=== PATIENT | male | born 1940 | race Caucasian/White ===

== ENCOUNTER 2018-01-14 21:02 | Inpatient (IN) | payer MEDICARE, BC ==
[2018-01-14] MEDS ORDERED: LORazepam 2 MG/ML SDV IVPUSH ONE (23:30)
[2018-01-14] MEDS ORDERED: HYDROmorphone 1 MG/ML Syringe IVPUSH ONE (23:30)
[2018-01-14] MEDS ORDERED: Ondansetron 4 MG/2 ML SDV IVPUSH ONE (23:30)
[2018-01-14] MEDS ORDERED: Sodium Chloride 0.9% 1,000 ML IV SCH (23:45)
--- NOTE | 2018-01-15 00:10 | EDM.PDOC ---
ED HPI GENERAL MEDICAL PROBLEM - General Chief Complaint: Lower Extremity Injury/Pain Stated Complaint: LEFT ANKLE SWOLLEN, PAINFUL Time Seen by Provider: 01/14/18 21:48 Source of Information: Reports: Patient, RN History Limitations: Reports: No Limitations - History of Present Illness INITIAL COMMENTS - FREE TEXT/NARRATIVE: left ankle pain; this is a 77 year old male presents to ER for left ankle pain. reports at 7pm this evening was out on his deck, sitting in a chair went to get up, the deck was wet and he slipped and twisted the ankle. He had immediate pain and swelling. unable to put any wt on the foot. denies any other injury, did not have any LOC. He called his neighbor to bring him to the hospital. Onset: Sudden Onset Date: 01/14/18 Onset Time: 19:00 Duration: Hour(s):, Constant Location: Reports: Lower Extremity, Left (ankle) Quality: Reports: Ache, Sharp Severity: Moderate Improves with: Reports: Cold Therapy Worsens with: Reports: Movement Context: Reports: Trauma (fall at home on his deck) Left Ankle Pain Score (Numeric/FACES): 5 - Related Data Allergies Allergy/AdvReac Type Severity Reaction Status Date / Time Sulfa (Sulfonamide Allergy Swelling Verified 04/11/16 06:43 Antibiotics) Home Meds: Home Meds Lutein Extract/Zeaxanthin Ext [Lutein 15 MG Softgel] 1 each PO DAILY 05/31/13 [ History] Multivitamin [Multi Vitamin Daily] 1 each PO DAILY 05/31/13 [History] Rivaroxaban [Xarelto] 20 mg PO DAILY 01/14/18 [History] atorvaSTATin [Lipitor] 20 mg PO BEDTIME 01/14/18 [History] Past Medical History HEENT History: Reports: Allergic Rhinitis, Cataract, Impaired Vision Cardiovascular History: Reports: Afib, High Cholesterol Gastrointestinal History: Reports: Colon Polyp Musculoskeletal History: Reports: Fracture Hematologic History: Reports: Anticoagulation Therapy - Infectious Disease History Infectious Disease History: Reports: Chicken Pox, Measles, Mumps, Shingles - Past Surgical History HEENT Surgical History: Reports: Cataract Surgery GI Surgical History: Reports: Appendectomy, Colonoscopy, Hernia, Abdominal, Hernia, Inguinal Dermatological Surgical History: Reports: Skin Biopsy Social & Family History - Tobacco Use Smoking Status *Q: Never Smoker - Caffeine Use Caffeine Use: Reports: Coffee - Alcohol Use Days Per Week of Alcohol Use: 5 Number of Drinks Per Day: 3 Total Drinks Per Week: 15 - Recreational Drug Use Recreational Drug Use: No - Living Situation & Occupation Living situation: Reports: (x30 year. 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 he is very active) Review of Systems - Review of Systems Review Of Systems: See Below Constitutional: Reports: Other (left ankle pain) Eyes: Reports: No Symptoms, Glasses Ears: Reports: Other (ears feel plugged) Nose: Reports: No Symptoms Mouth/Throat: Reports: No Symptoms, Other (dentures) Respiratory: Reports: No Symptoms Cardiovascular: Reports: No Symptoms GI/Abdominal: Reports: No Symptoms, Other (hx of hernia repair; umbilical and bilateral inguinal) Genitourinary: Reports: No Symptoms Musculoskeletal: Reports: Leg Pain (left), Foot Pain (left), Joint Pain (left ankle), Joint Swelling (left ankle) Skin: Reports: Dryness (Left ankle), Bruising (Left ankle), Change in Color Neurological: Reports: No Symptoms Psychiatric: Reports: No Symptoms ED EXAM, GENERAL - Physical Exam Exam: See Below Exam Limited By: No Limitations General Appearance: Alert, WD/WN, Mild Distress, Other (Need to well-groomed, pleasant in general good health) Eye Exam: Bilateral Eye: Normal Inspection, PERRL, Other (Wears corrective glasses) Ears: Normal External Exam, Other (Canals impacted with soft yellow earwax, unable to visualize tympanic membrane) Ear Exam: Bilateral Ear: Other (Excessive earwax) Nose: Normal Inspection, Normal Mucosa, No Blood Throat/Mouth: Normal Inspection, Normal Lips, Normal Teeth, Normal Gums, Normal Oropharynx, Normal Voice, No Airway Compromise, Other (Dentures noted) Head: Atraumatic, Normocephalic Neck: Normal Inspection, Supple, Non-Tender, Full Range of Motion Respiratory/Chest: No Respiratory Distress, Lungs Clear, Normal Breath Sounds, No Accessory Muscle Use, Chest Non-Tender Cardiovascular: Normal Peripheral Pulses, Regular Rate, Rhythm, No Murmur Peripheral Pulses: 2+: Radial (L), Radial (R), Dorsalis Pedis (L), Dorsalis Pedis (R) GI/Abdominal: Normal Bowel Sounds, Soft, Non-Tender, No Organomegaly, No Distention, No Abnormal Bruit, No Mass (Male) Exam: Deferred Rectal (Males) Exam: Deferred Back Exam: Normal Inspection, Full Range of Motion, NT Extremities: Joint Swelling (Left ankle), Leg Pain (Left ankle with edema, bruising, and pain with any movement.), Limited Range of Motion (Left ankle left ankle) Neurological: Alert (She now), Oriented, CN II-XII Intact, Normal Cognition, Normal Gait, Normal Reflexes, No Motor/Sensory Deficits Psychiatric: Normal Affect Skin Exam: Warm, Dry, Intact, No Rash, Other (Bruising noted to the left ankle and toes) Lymphatic: No Adenopathy ED TRAUMA EXTREMITY PROCEDURES - Splinting Left Lower Extremity Pre-Procedure NV Status: Normal Post-Procedure NV Status: Normal Splint Material: Aluminum-Foam Splint Design: Stirrup Applied & Form Fitted By: Provider (Dr. Bruno) Provider Post-Splint Application NV Check: NV Status Normal, Good Position Complications: No Course - Vital Signs Last Recorded V/S: Last Vital Signs Temp 37.3 C 01/15/18 00:45 Pulse 65 01/15/18 00:45 Resp 15 01/15/18 00:45 BP 109/73 01/15/18 00:45 Pulse Ox 95 01/15/18 00:45 - Orders/Labs/Meds Orders: Active Orders 24 hr Category Date Time Status Ankle Min 3V Lt [CR] Stat Exams 01/14/18 22:33 Taken Sodium Chloride 0.9% [Normal Saline] 1,000 ml Med 01/14/18 23:45 Active IV ASDIRECTED Medication Orders Albuterol (Proventil Neb Soln) 2.5 mg NEB Q4H PRN PRN Reason: Shortness Of Breath/wheezing Docusate Sodium (Colace) 100 mg PO BID PRN PRN Reason: Constipation Hydromorphone HCl (Dilaudid) 1 mg IVPUSH Q3H PRN PRN Reason: Pain Sodium Chloride (Normal Saline) 1,000 mls @ 999 mls/hr IV ASDIRECTED [facility] Last Admin: 01/14/18 23:46 Dose: 999 mls/hr Cefazolin Sodium/Dextrose 2 gm (/ Premix) 50 mls @ 100 mls/hr IV DAILY PRN PRN Reason: Other Stop: 01/16/18 11:31 Sodium Chloride (Normal Saline) 1,000 mls @ 125 mls/hr IV ASDIRECTED [facility] Lorazepam (Ativan) 1 mg IV Q6H PRN PRN Reason: Nausea/Vomiting Morphine Sulfate (Morphine) 2 mg IVPUSH Q2H PRN PRN Reason: Pain (severe 7-10) Ondansetron HCl (Zofran) 4 mg IV Q4H PRN PRN Reason: Nausea/Vomiting Pantoprazole Sodium (Protonix Iv) 40 mg IVPUSH ACBREAKFAST [facility] Zolpidem Tartrate (Ambien) 5 mg PO BEDTIME [facility] Meds: Medications Generic Name Dose Route Start Last Admin Trade Name Freq PRN Reason Stop Dose Admin Albuterol 2.5 mg 01/15/18 00:45 Proventil Neb Soln NEB Q4H PRN Shortness Of Breath/wheezing Docusate Sodium 100 mg 01/15/18 00:45 Colace PO BID PRN Constipation Hydromorphone HCl 1 mg 01/15/18 00:45 Dilaudid IVPUSH Q3H PRN Pain Sodium Chloride 1,000 mls @ 999 mls/hr 01/14/18 23:45 01/14/18 23:46 Normal Saline IV 999 mls/hr ASDIRECTED [facility] Administration Cefazolin Sodium/Dextrose 2 gm 50 mls @ 100 mls/hr 01/15/18 11:30 / Premix IV 01/16/18 11:31 DAILY PRN Other Sodium Chloride 1,000 mls @ 125 mls/hr 01/15/18 00:45 Normal Saline IV ASDIRECTED [facility] Lorazepam 1 mg 01/15/18 00:45 Ativan IV Q6H PRN Nausea/Vomiting Morphine Sulfate 2 mg 01/15/18 00:45 Morphine IVPUSH Q2H PRN Pain (severe 7-10) Ondansetron HCl 4 mg 01/15/18 00:45 Zofran IV Q4H PRN Nausea/Vomiting Pantoprazole Sodium 40 mg 01/15/18 07:30 Protonix Iv IVPUSH ACBREAKFAST [facility] Zolpidem Tartrate 5 mg 01/15/18 00:45 Ambien PO BEDTIME [facility] Discontinued Medications Generic Name Dose Route Start Last Admin Trade Name Freq PRN Reason Stop Dose Admin Hydromorphone HCl 1 mg 01/14/18 23:30 01/14/18 23:52 Dilaudid IVPUSH 01/14/18 23:31 1 mg ONETIME ONE Administration Lorazepam 0.5 mg 01/14/18 23:30 01/14/18 23:52 Ativan IVPUSH 01/14/18 23:31 0.5 mg ONETIME ONE Administration Ondansetron HCl 4 mg 01/14/18 23:30 01/14/18 23:53 Zofran IVPUSH 01/14/18 23:31 4 mg ONETIME ONE Administration - Radiology Interpretation Free Text/Narrative:: X-ray shows a left ankle fracture, spiral oblique fracture of the distal fibula and abnormal ankle mortise Consulted with Dr. Hector Faustin orthopedic surgeon Recommends admission to hospital service -surgery at noon tomorrow, January 15, 2018 -Give Ancef 2 g prior to surgery -Nothing by mouth after midnight -reduce fracture, Placed in a posterior splint and reduced by ER provider -For reduction of fracture, patient was given 1 mg Dilaudid and 0.5 mg IV, pain control is obtained, IV fluids normal saline at 999 mL per hour. Discuss all the above plan of care with patient, he agrees with plan of care, he will notify his family in the morning Departure - Departure Time of Disposition: 00:15 Disposition: Admitted As Inpatient 65 Condition: Good Clinical Impression: Fracture of ankle, Fracture of fibula - Discharge Information *PRESCRIPTION DRUG MONITORING PROGRAM REVIEWED*: No *COPY OF PRESCRIPTION DRUG MONITORING REPORT IN PATIENT JESU: No - Problem List & Annotations (1) Fracture of ankle SNOMED Code(s): 13794595 Code(s): S82.899A - OTH FRACTURE OF UNSP LOWER LEG, INIT FOR CLOS FX Status : Acute Priority: High Current Visit: Yes (2) Fracture of fibula SNOMED Code(s): 58762642 Code(s): S82.409A - UNSP FRACTURE OF SHAFT OF UNSP FIBULA, INIT FOR CLOS FX Status: Acute Priority: High Current Visit: Yes (3) Afib, Atrial fibrillation SNOMED Code(s): 67162882 Code(s): I48.91 - UNSPECIFIED ATRIAL FIBRILLATION Status: Acute Priority : Low Current Visit: No - Problem List Review Problem List Initiated/Reviewed/Updated: Yes - My Orders Last 24 Hours: My Active Orders 01/14/18 22:33 Ankle Min 3V Lt [CR] Stat 01/14/18 23:45 Sodium Chloride 0.9% [Normal Saline] 1,000 ml IV ASDIRECTED - Assessment/Plan Last 24 Hours: My Active Orders 01/14/18 22:33 Ankle Min 3V Lt [CR] Stat 01/14/18 23:45 Sodium Chloride 0.9% [Normal Saline] 1,000 ml IV ASDIRECTED
[2018-01-15] MEDS ORDERED: Ondansetron 4 MG/2 ML SDV IV PRN (00:45)
[2018-01-15] MEDS ORDERED: Albuterol 0.083% 2.5 MG/3 ML Neb Soln NEB PRN (00:45)
[2018-01-15] MEDS ORDERED: Docusate Sodium 100 MG Cap PO PRN (00:45)
[2018-01-15] MEDS ORDERED: Morphine 2 MG/ML Syringe IVPUSH PRN (00:45)
[2018-01-15] MEDS ORDERED: LORazepam 2 MG/ML SDV IV PRN ×2 (00:45→13:51)
--- NOTE | 2018-01-15 01:29 | PCM.HP ---
H&P History of Present Illness - General Date of Service: 01/14/18 Admit Problem/Dx: Admission Diagnosis/Problem Admission Diagnosis/Problem Ankle fracture Source of Information: Patient History Limitations: Reports: No Limitations - History of Present Illness Initial Comments - Free Text/Narative: left ankle pain; this is a 77 year old male presents to ER for left ankle pain. reports at 7pm this evening was out on his deck, sitting in a chair went to get up, the deck was wet and he slipped and twisted the ankle. He had immediate pain and swelling. unable to put any wt on the foot. denies any other injury, did not have any LOC. He called his neighbor to bring him to the hospital. X-rays of left ankle show a spiral oblique fracture of the distal fibula was abnormal mortise of ankle. Consult to Dr. Peter Faustin who advised admission for surgery tomorrow at noon, also advised reduction of the ankle. This was done by ER provider without complication. Placed in the posterior's steel and foam splint. While in emergency room given IV fluids, Dilaudid, Ativan, and Zofran. Onset of Symptoms: Reports: Sudden Symptom Onset Date: 01/14/18 Symptom Onset Time: 19:00 Duration of Symptoms: Reports: Hour(s): Location: Reports: Lower Extremity, Left (Ankle) Quality: Reports: Ache, Sharp, Stabbing Severity: Moderate Improves with: Reports: Immobilization Worsens with: Reports: Movement Context: Reports: Other (Fall on [place] Associated Symptoms: Reports: No Other Symptoms Left Ankle Pain Score (Numeric/FACES): 5 - Related Data Allergies/Adverse Reactions: Allergies Allergy/AdvReac Type Severity Reaction Status Date / Time Sulfa (Sulfonamide Allergy Swelling Verified 04/11/16 06:43 Antibiotics) Home Medications: Home Meds Lutein Extract/Zeaxanthin Ext [Lutein 15 MG Softgel] 1 each PO DAILY 05/31/13 [ History] Multivitamin [Multi Vitamin Daily] 1 each PO DAILY 05/31/13 [History] Rivaroxaban [Xarelto] 20 mg PO DAILY 01/14/18 [History] atorvaSTATin [Lipitor] 20 mg PO BEDTIME 01/14/18 [History] Past Medical History HEENT History: Reports: Allergic Rhinitis, Cataract, Impaired Vision Cardiovascular History: Reports: Afib, High Cholesterol Gastrointestinal History: Reports: Colon Polyp Musculoskeletal History: Reports: Fracture Hematologic History: Reports: Anticoagulation Therapy - Infectious Disease History Infectious Disease History: Reports: Chicken Pox, Measles, Mumps, Shingles - Past Surgical History HEENT Surgical History: Reports: Cataract Surgery GI Surgical History: Reports: Appendectomy, Colonoscopy, Hernia, Abdominal, Hernia, Inguinal Dermatological Surgical History: Reports: Skin Biopsy Social & Family History - Tobacco Use Smoking Status *Q: Never Smoker Second Hand Smoke Exposure: No - Caffeine Use Caffeine Use: Reports: Coffee - Alcohol Use Days Per Week of Alcohol Use: 5 Number of Drinks Per Day: 3 Total Drinks Per Week: 15 Date of Last Drink: 01/14/18 Time of Last Drink: 17:00 - Recreational Drug Use Recreational Drug Use: No - Living Situation & Occupation Living situation: Reports: (x30 year. 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 he is very active) H&P Review of Systems - Review of Systems: Review Of Systems: See Below General: Reports: Other (Left lower leg pain) HEENT: Reports: No Symptoms, Glasses, Other (Dentures) Pulmonary: Reports: No Symptoms Cardiovascular: Reports: No Symptoms, Other (History of atrial fib., treated with Xarelto 20mg daily) Gastrointestinal: Reports: No Symptoms Genitourinary: Reports: No Symptoms Musculoskeletal: Reports: Leg Pain, Foot Pain (Left left), Joint Pain (Left ankle), Joint Swelling (Left ankle and foot) Skin: Reports: Bruising (Left ankle and foot including toes) Psychiatric: Reports: No Symptoms Neurological: Reports: No Symptoms Hematologic/Lymphatic: Reports: No Symptoms Immunologic: Reports: No Symptoms Exam - Exam Exam: See Below - Vital Signs Vital Signs: Last Vital Signs Temp 37.3 C 01/15/18 00:45 Pulse 65 01/15/18 00:45 Resp 15 01/15/18 00:45 BP 109/73 01/15/18 00:45 Pulse Ox 95 01/15/18 00:45 Weight: 95.073 kg - Exam Quality Assessment: Supplemental Oxygen (2 L per nasal cannula) General: Alert, Oriented, Cooperative, Other (Calm and pain control with IV Ativan and Dilaudid) HEENT: PERRLA, Conjunctiva Clear, EACs Clear, EOMI, Hearing Intact, Mucosa Moist & Niotaze, Nares Patent, Normal Nasal Septum, Pupils Equal, Pupils Reactive, Glasses, Other (Dentures, excessive ear wax is noted.) Neck: Supple, Trachea Midline, 2 Lungs: Clear to Auscultation, Normal Respiratory Effort Cardiovascular: Regular Rate, Regular Rhythm GI/Abdominal Exam: Normal Bowel Sounds, Soft, Non-Tender, No Organomegaly, No Distention, No Abnormal Bruit, No Mass, Pelvis Stable (Male) Exam: Deferred Rectal (Males) Exam: Deferred Back Exam: Normal Inspection, Full Range of Motion Extremities: Leg Pain (Left ankle edema, bruising, pain, and due to ankle fracture.), Limited Range of Motion Peripheral Pulses: 2+: Brachial (L), Brachial (R), Dorsalis Pedis (L), Dorsalis Pedis (R) Skin: Warm, Dry, Ecchymosis (Left ankle and foot including toes) Neurological: Normal Speech, Normal Tone, Sensation Intact Neuro Extensive - Mental Status: Alert, Oriented x3, Normal Mood/Affect, Normal Cognition, Memory Intact Neuro Extensive - Motor, Sensory, Reflexes: CN II-XII Intact Psychiatric: Alert, Normal Affect, Normal Mood - Problem List (1) Fracture of ankle SNOMED Code(s): 75149330 ICD Code: S82.899A - OTH FRACTURE OF UNSP LOWER LEG, INIT FOR CLOS FX Status: Acute Priority: High Current Visit: Yes (2) Fracture of fibula SNOMED Code(s): 71796947 ICD Code: S82.409A - UNSP FRACTURE OF SHAFT OF UNSP FIBULA, INIT FOR CLOS FX Status: Acute Priority: High Current Visit: Yes (3) Afib, Atrial fibrillation SNOMED Code(s): 90699916 ICD Code: I48.91 - UNSPECIFIED ATRIAL FIBRILLATION Status: Acute Priority : Low Current Visit: No Problem List Initiated/Reviewed/Updated: Yes Orders Last 24hrs: Active Orders 24 hr Category Date Time Status Patient Status [ADT] Routine ADT 01/15/18 00:45 Active Bedrest Bedside Commode [RC] ASDIRECTED Care 01/15/18 00:45 Active Intake and Output [RC] QSHIFT Care 01/15/18 00:45 Active Notify Provider Consults [RC] ASDIRECTED Care 01/15/18 00:45 Active Notify Provider Vital Signs [RC] ASDIRECTED Care 01/15/18 00:45 Active Oxygen Therapy [RC] PRN Care 01/15/18 00:45 Active Pulse Oximetry [RC] CONTINUOUS Care 01/15/18 00:45 Active RT Aerosol Therapy [RC] ASDIRECTED Care 01/15/18 00:45 Active VTE/DVT Education [RC] Per Unit Routine Care 01/15/18 00:45 Active Vital Signs [RC] Q4H Care 01/15/18 00:45 Active Consult to Physician [CONS] Routine Cons 01/15/18 00:45 Ordered OT Evaluation and Treatment [CONS] Routine Cons 01/15/18 00:45 Active Nothing per Oral After Midnight Diet [DIET] Diet 01/15/18 Breakfast Active Ankle Min 3V Lt [CR] Stat Exams 01/14/18 22:33 Taken BASIC METABOLIC PANEL,BMP [CHEM] AM Lab 01/15/18 05:11 Ordered CBC WITH AUTO DIFF [HEME] AM Lab 01/15/18 05:11 Ordered UA W/MICROSCOPIC [URIN] Routine Lab 01/15/18 00:45 Ordered Albuterol [Proventil Neb Soln] Med 01/15/18 00:45 Active 2.5 mg NEB Q4H PRN Docusate Sodium [Colace] Med 01/15/18 00:45 Active 100 mg PO BID PRN HYDROmorphone [Dilaudid] Med 01/15/18 00:45 Active 1 mg IVPUSH Q3H PRN LORazepam [Ativan] Med 01/15/18 00:45 Active 1 mg IV Q6H PRN Morphine Med 01/15/18 00:45 Active 2 mg IVPUSH Q2H PRN Ondansetron [Zofran] Med 01/15/18 00:45 Active 4 mg IV Q4H PRN Pantoprazole [ProTONIX IV] Med 01/15/18 07:30 Active 40 mg IVPUSH ACBREAKFAST Sodium Chloride 0.9% [Normal Saline] 1,000 ml Med 01/14/18 23:45 Active IV ASDIRECTED Sodium Chloride 0.9% [Normal Saline] 1,000 ml Med 01/15/18 00:45 Active IV ASDIRECTED Zolpidem [Ambien] Med 01/15/18 00:45 Active 5 mg PO BEDTIME ceFAZolin [Ancef] 2 gm Med 01/15/18 11:30 Active Premix Bag 1 bag IV DAILY Resuscitation Status Routine Resus Stat 01/14/18 23:51 Ordered Medication Orders Albuterol (Proventil Neb Soln) 2.5 mg NEB Q4H PRN PRN Reason: Shortness Of Breath/wheezing Docusate Sodium (Colace) 100 mg PO BID PRN PRN Reason: Constipation Hydromorphone HCl (Dilaudid) 1 mg IVPUSH Q3H PRN PRN Reason: Pain Sodium Chloride (Normal Saline) 1,000 mls @ 999 mls/hr IV ASDIRECTED [facility] Last Admin: 01/14/18 23:46 Dose: 999 mls/hr Cefazolin Sodium/Dextrose 2 gm (/ Premix) 50 mls @ 100 mls/hr IV DAILY PRN PRN Reason: Other Stop: 01/16/18 11:31 Sodium Chloride (Normal Saline) 1,000 mls @ 125 mls/hr IV ASDIRECTED [facility] Lorazepam (Ativan) 1 mg IV Q6H PRN PRN Reason: Nausea/Vomiting Morphine Sulfate (Morphine) 2 mg IVPUSH Q2H PRN PRN Reason: Pain (severe 7-10) Ondansetron HCl (Zofran) 4 mg IV Q4H PRN PRN Reason: Nausea/Vomiting Pantoprazole Sodium (Protonix Iv) 40 mg IVPUSH [facility]BREAK[facility]ST [facility] Zolpidem Tartrate (Ambien) 5 mg PO BEDTIME [facility] Assessment/Plan Comment:: ASSESSMENT / PLAN - left ankle pain; this is a 77 year old male presents to ER for left ankle pain. reports at 7pm this evening was out on his deck, sitting in a chair went to get up, the deck was wet and he slipped and twisted the ankle. He had immediate pain and swelling. unable to put any wt on the foot. denies any other injury, did not have any LOC. He called his neighbor to bring him to the hospital. X-rays of left ankle show a spiral oblique fracture of the distal fibula with abnormal mortise of ankle. Consult to Dr. Peter Faustin who advised admission for surgery tomorrow at noon, also advised reduction of the ankle. This was done by ER provider without complication. Placed in the posterior's steel and foam splint. While in emergency room given IV fluids, Dilaudid, Ativan, and Zofran. Left ankle fracture -Admit to 2 N. observation -Scheduled for surgery of the left ankle at noon on the 12/08/17 -Nothing by mouth after midnight -Ancef 2 g. IV prior to surgery -Pain control -Melatonin or Ambien for sleep as he did -Referral to OT for discharge planning -Oxygen per nasal cannula to keep sats greater than 90% -IV fluids for rehydration NS at 125 mL per hour -Advise to notify nurses of any chest pain or other symptoms -And a.m. labs: CBC, BMP Atrial fibrillation, chronic Treated with Xarelto, placed on hold pending surgery Maintenance issues -Orders home meds: On hold until surgery -Nutrition: Nothing by mouth after midnight -Duarte catheter not indicated at this time -DVT: Xarelto on hold -GI Prophalaxis; Protonix 40mg IV daily - CODE STATUS: Full Admission status: Admit to Observation -I expect this patient to stay less than 24 hours, not to exceed 96 hours for evaluation and management of this problem. Disposition: Home Primary care provider: Dr. Echeverria Hospitalist: Dr. Holden Attending: Dr. Amie Faustin, orthopedic surgeon
[2018-01-15] MEDS: Sodium Chloride 0.9% 1,000 ML IV SCH ×2 (01:33→10:05)
[2018-01-15] MEDS: Zolpidem 5 MG Tab PO SCH ×2 (01:46→20:58)
[2018-01-15] MEDS: Melatonin 3 MG Tab PO SCH ×2 (01:56→20:59)
[2018-01-15] MEDS: HYDROmorphone 1 MG/ML Syringe IVPUSH PRN ×2 (03:40→07:35)
[2018-01-15] MEDS ORDERED: Pantoprazole 40 MG Vial IVPUSH SCH (07:30)
--- NOTE | 2018-01-15 08:55 | CR ---
Ankle Min 3V Lt CLINICAL HISTORY: Pain, fall FINDINGS: The soft tissues are swollen. There is an oblique fracture of the distal fibula. There is l ateral subluxation of the talus. There is some asymmetry at the talonavicular and calcaneocuboid maude culations. Impression: Distal fibular fracture Tibiotalar subluxation Asymmetry at the talar and calcaneal articulations. Some of this may be positional
--- NOTE | 2018-01-15 09:08 | PCM.CONS ---
H&P History of Present Illness - General Date of Service: 01/15/18 Admit Problem/Dx: Admission Diagnosis/Problem Admission Diagnosis/Problem Ankle fracture Source of Information: Patient, Provider, RN History Limitations: Reports: No Limitations - History of Present Illness Onset of Symptoms: Reports: Sudden Duration of Symptoms: Reports: Hour(s): Location: Reports: Lower Extremity, Left Quality: Reports: Pressure, Throbbing Severity: Moderate Improves with: Reports: None Worsens with: Reports: None Associated Symptoms: Reports: No Other Symptoms Left Ankle Pain Score (Numeric/FACES): 5 - Related Data Allergies/Adverse Reactions: Allergies Allergy/AdvReac Type Severity Reaction Status Date / Time Sulfa (Sulfonamide Allergy Swelling Verified 04/11/16 06:43 Antibiotics) Home Medications: Home Meds Lutein Extract/Zeaxanthin Ext [Lutein 15 MG Softgel] 1 each PO DAILY 05/31/13 [ History] Multivitamin [Multi Vitamin Daily] 1 each PO DAILY 05/31/13 [History] Rivaroxaban [Xarelto] 20 mg PO DAILY 01/14/18 [History] atorvaSTATin [Lipitor] 20 mg PO BEDTIME 01/14/18 [History] Past Medical History HEENT History: Reports: Allergic Rhinitis, Cataract, Impaired Vision Cardiovascular History: Reports: Afib, High Cholesterol Gastrointestinal History: Reports: Colon Polyp Musculoskeletal History: Reports: Fracture Hematologic History: Reports: Anticoagulation Therapy - Infectious Disease History Infectious Disease History: Reports: Chicken Pox, Measles, Mumps, Shingles - Past Surgical History HEENT Surgical History: Reports: Cataract Surgery GI Surgical History: Reports: Appendectomy, Colonoscopy, Hernia, Abdominal, Hernia, Inguinal Dermatological Surgical History: Reports: Skin Biopsy Social & Family History - Tobacco Use Smoking Status *Q: Never Smoker Second Hand Smoke Exposure: No - Caffeine Use Caffeine Use: Reports: Coffee - Alcohol Use Days Per Week of Alcohol Use: 5 Number of Drinks Per Day: 3 Total Drinks Per Week: 15 Date of Last Drink: 01/14/18 Time of Last Drink: 17:00 - Recreational Drug Use Recreational Drug Use: No - Living Situation & Occupation Living situation: Reports: (x30 year. has a S.O.), Single, Alone Occupation: Retired (retired [employer], lives [place] in [place], has 3 children , who [place]. he is very active) H&P Review of Systems - Review of Systems: Review Of Systems: See Below General: Reports: No Symptoms HEENT: Reports: No Symptoms Pulmonary: Reports: No Symptoms Cardiovascular: Reports: No Symptoms Gastrointestinal: Reports: No Symptoms Genitourinary: Reports: No Symptoms Musculoskeletal: Reports: Joint Pain Skin: Reports: No Symptoms Psychiatric: Reports: No Symptoms Neurological: Reports: No Symptoms Hematologic/Lymphatic: Reports: No Symptoms Immunologic: Reports: No Symptoms Exam - Exam Exam: See Below - Vital Signs Vital Signs: Last Vital Signs Temp 97.7 F 01/15/18 06:49 Pulse 77 01/15/18 06:49 Resp 15 01/15/18 06:49 BP 135/66 01/15/18 06:49 Pulse Ox 97 01/15/18 07:12 Weight: 209 lb 9.6 oz - Exam General: Alert, Oriented HEENT: Mucosa Moist & [place], Pupils Equal, Pupils Reactive Neck: Supple, Trachea Midline Cardiovascular: Regular Rate Extremities: Leg Pain, Limited Range of Motion Peripheral Pulses: 2+: Dorsalis Pedis (L) Skin: Warm, Dry, Intact - Patient Data Lab Results Last 24 hrs: Laboratory Results - last 24 hr 01/15/18 01/15/18 01/15/18 Range/Units 03:36 05:11 05:11 WBC 8.4 (4.5-11.0) K/uL RBC 3.98 L (4.30-5.90) M/uL Hgb 13.6 D (12.0-15.0) g/dL Hct 40.6 (40.0-54.0) % MCV 102 H (80-98) fL MCH 34 H (27-31) pg MCHC 34 (32-36) % Plt Count 255 (150-400) K/uL Neut % (Auto) 62 (36-66) % Lymph % (Auto) 19 L (24-44) % [place] % (Auto) 17 H (2-6) % Eos % (Auto) 2 (2-4) % Baso % (Auto) 0 (0-1) % Sodium 135 L (140-148) mmol/L Potassium 4.0 (3.6-5.2) mmol/L Chloride 102 (100-108) mmol/L Carbon Dioxide 23 (21-32) mmol/L Anion Gap 14.0 (5.0-14.0) mmol/L BUN 9 (7-18) mg/dL Creatinine 0.9 (0.8-1.3) mg/dL Est Cr Clr Drug Dosing 67.65 mL/min Estimated GFR (MDRD) > 60 (>60) Glucose 107 H (74-106) mg/dL Calcium 7.8 L (8.5-10.1) mg/dL Urine Color Yellow Urine Appearance Clear Urine pH 5.0 (4.5-8.0) Ur Specific [place] 1.010 (1.008-1.030) Urine Protein Negative (NEGATIVE) mg/dL Urine Glucose (UA) Normal (NEGATIVE) mg/dL Urine Ketones Negative (NEGATIVE) mg/dL Urine Occult Blood Negative (NEGATIVE) Urine Nitrite Negative (NEGAITVE) Urine Bilirubin Negative (NEGATIVE) Urine Urobilinogen Normal (NORMAL) mg/dL Ur Leukocyte Esterase Negative (NEGATIVE) Urine RBC 0-5 (0-5) Urine WBC 0-5 (0-5) Ur Epithelial Cells Rare Amorphous Sediment Rare Urine Bacteria Not seen Urine Mucus Few Result Diagrams: 01/15/18 05:11 01/15/18 05:11 Imaging Impressions Last 24 hrs: Left ankle, [place] B, closed, distal fibula fracture. Consult PN Assessment/Plan POD#: 0 Procedures: Procedures ASSAY OF MAGNESIUM (06/02/13) ASSAY OF TROPONIN QUANT (06/02/13) ASSAY THYROID STIM HORMONE (06/02/13) CATARACT SURG W/IOL 1 STAGE (04/11/16) COLONOSCOPY AND BIOPSY (06/02/13) COMPLETE CBC W/AUTO DIFF WBC (06/02/13) COMPREHEN METABOLIC PANEL (06/02/13) ECG MONIT/REPRT UP TO 48 HRS (06/10/13) ECG MONIT/REPRT UP TO 48 HRS (06/10/13) ELECTROCARDIOGRAM REPORT (06/02/13) ELECTROCARDIOGRAM TRACING (06/02/13) OFFICE/OUTPATIENT VISIT EST (06/02/13) PROTHROMBIN TIME (06/02/13) ROUTINE VENIPUNCTURE (06/02/13) TISSUE EXAM BY PATHOLOGIST (06/02/13) TTE W/DOPPLER COMPLETE (07/28/17) (1) Fracture of fibula SNOMED Code(s): 89806380 Code(s): S82.409A - UNSP FRACTURE OF SHAFT OF UNSP FIBULA, INIT FOR CLOS FX Priority: High Current Visit: Yes Problem List Initiated/Reviewed/Updated: Yes Plan: I the pleasure visiting with the patient in his hospital room this morning. His pain is controlled. About 5 years ago he did have a distal fibular plate placed on the right ankle. He tolerated this well. He did not have problems with Percocet. He is allergic to sulfas. He is not allergic to penicillin. I discussed the risks and benefits of the procedure with the patient. We will see him 2 weeks postoperatively for staple removal. I have discussed follow-up with [facility]. They are willing to see him postoperatively.
[2018-01-15] MEDS ORDERED: Bupivacaine 0.5% 50 ML MDV ONE (10:31)
[2018-01-15] MEDS ORDERED: Gentamicin 40 MG/ML 2 ML Vial ONE (10:31)
[2018-01-15] MEDS ORDERED: Povidone-Iodine 10% Soln 118.25 ML Bottle ONE (10:31)
[2018-01-15] MEDS ORDERED: ceFAZolin 2 GM in Premix Bag 1 BAG IV ONE (11:30)
[2018-01-15] MEDS ORDERED: ceFAZolin 2 GM in Sodium Chloride 0.9% 50 ML IV ONE (11:30)
[2018-01-15] MEDS ORDERED: ceFAZolin 2 GM in Premix Bag 1 BAG IV PRN (11:30)
[2018-01-15] MEDS ORDERED: Diltiazem 25 MG/5 ML SDV IVPUSH ONE (11:45)
[2018-01-15] MEDS: Diltiazem IR 30 MG Tab PO SCH ×3 (12:49→23:44)
--- NOTE | 2018-01-15 13:48 | PCM.PN ---
- General Info Date of Service: 01/15/18 Subjective Update: Mr. Pineda is a 77-year-old gentleman who fell and experienced a left ankle fracture yesterday. He presented to the emergency department and was admitted to observation status for surgical repair the fracture this morning by Dr. Paulie Faustin. Midmorning he was up attempting to walk with use of a walker when his heart rate became very elevated in the range of 170-200 associated with diaphoresis and weakness. He does have a known history of atrial fibrillation with variable ventricular response. He has been on long-term oral anticoagulation. Denied any symptoms of chest pain or pressure, EKG showed no acute ST segment changes and troponin level is within normal range. Functional Status: Reports: Pain Controlled, Tolerating Diet, Urinating - Review of Systems General: Reports: Weakness. Denies: Fever, Chills Pulmonary: Reports: No Symptoms Cardiovascular: Reports: Palpitations, Dyspnea on Exertion, Lightheadedness. Denies: Chest Pain, Orthopnea, PND, Edema Gastrointestinal: Reports: No Symptoms Musculoskeletal: Reports: Other (Pain left lower leg secondary to fracture) - Patient Data Vitals - Most Recent: Last Vital Signs Temp 98.3 F 01/15/18 12:17 Pulse 69 01/15/18 12:17 Resp 14 01/15/18 12:17 BP 117/79 01/15/18 12:17 Pulse Ox 95 01/15/18 12:17 Weight - Most Recent: 209 lb 9.601 oz I&O - Last 24 Hours: Intake & Output 01/14/18 01/15/18 01/15/18 22:59 06:59 14:59 Intake Total 618 Output Total 150 500 Balance 468 -500 Lab Results Last 24 Hours: Laboratory Results - last 24 hr 01/15/18 01/15/18 01/15/18 Range/Units 03:36 05:11 05:11 WBC 8.4 (4.5-11.0) K/uL RBC 3.98 L (4.30-5.90) M/uL Hgb 13.6 D (12.0-15.0) g/dL Hct 40.6 (40.0-54.0) % MCV 102 H (80-98) fL MCH 34 H (27-31) pg MCHC 34 (32-36) % Plt Count 255 (150-400) K/uL Neut % (Auto) 62 (36-66) % Lymph % (Auto) 19 L (24-44) % [place] % (Auto) 17 H (2-6) % Eos % (Auto) 2 (2-4) % Baso % (Auto) 0 (0-1) % Sodium 135 L (140-148) mmol/L Potassium 4.0 (3.6-5.2) mmol/L Chloride 102 (100-108) mmol/L Carbon Dioxide 23 (21-32) mmol/L Anion Gap 14.0 (5.0-14.0) mmol/L BUN 9 (7-18) mg/dL Creatinine 0.9 (0.8-1.3) mg/dL Est Cr Clr Drug Dosing 67.65 mL/min Estimated GFR (MDRD) > 60 (>60) Glucose 107 H (74-106) mg/dL Calcium 7.8 L (8.5-10.1) mg/dL Magnesium (1.8-2.4) mg/dL Troponin I (0.000-0.056) ng/mL Urine Color Yellow Urine Appearance Clear Urine pH 5.0 (4.5-8.0) Ur Specific [place] 1.010 (1.008-1.030) Urine Protein Negative (NEGATIVE) mg/dL Urine Glucose (UA) Normal (NEGATIVE) mg/dL Urine Ketones Negative (NEGATIVE) mg/dL Urine Occult Blood Negative (NEGATIVE) Urine Nitrite Negative (NEGAITVE) Urine Bilirubin Negative (NEGATIVE) Urine Urobilinogen Normal (NORMAL) mg/dL Ur Leukocyte Esterase Negative (NEGATIVE) Urine RBC 0-5 (0-5) Urine WBC 0-5 (0-5) Ur Epithelial Cells Rare Amorphous Sediment Rare Urine Bacteria Not seen Urine Mucus Few 01/15/18 Range/Units 11:20 WBC (4.5-11.0) K/uL RBC (4.30-5.90) M/uL Hgb (12.0-15.0) g/dL Hct (40.0-54.0) % MCV (80-98) fL MCH (27-31) pg MCHC (32-36) % Plt Count (150-400) K/uL Neut % (Auto) (36-66) % Lymph % (Auto) (24-44) % [place] % (Auto) (2-6) % Eos % (Auto) (2-4) % Baso % (Auto) (0-1) % Sodium (140-148) mmol/L Potassium (3.6-5.2) mmol/L Chloride (100-108) mmol/L Carbon Dioxide (21-32) mmol/L Anion Gap (5.0-14.0) mmol/L BUN (7-18) mg/dL Creatinine (0.8-1.3) mg/dL Est Cr Clr Drug Dosing mL/min Estimated GFR (MDRD) (>60) Glucose (74-106) mg/dL Calcium (8.5-10.1) mg/dL Magnesium 1.8 (1.8-2.4) mg/dL Troponin I < 0.017 (0.000-0.056) ng/mL Urine Color Urine Appearance Urine pH (4.5-8.0) Ur Specific [place] (1.008-1.030) Urine Protein (NEGATIVE) mg/dL Urine Glucose (UA) (NEGATIVE) mg/dL Urine Ketones (NEGATIVE) mg/dL Urine Occult Blood (NEGATIVE) Urine Nitrite (NEGAITVE) Urine Bilirubin (NEGATIVE) Urine Urobilinogen (NORMAL) mg/dL Ur Leukocyte Esterase (NEGATIVE) Urine RBC (0-5) Urine WBC (0-5) Ur Epithelial Cells Amorphous Sediment Urine Bacteria Urine Mucus Med Orders - Current: Current Medications Albuterol (Proventil Neb Soln) 2.5 mg NEB Q4H PRN PRN Reason: Shortness Of Breath/wheezing Diltiazem HCl (Cardizem) 30 mg PO Q6H [facility] Last Admin: 01/15/18 12:49 Dose: 30 mg Docusate Sodium (Colace) 100 mg PO BID PRN PRN Reason: Constipation Hydromorphone HCl (Dilaudid) 1 mg IVPUSH Q3H PRN PRN Reason: Pain Last Admin: 01/15/18 07:35 Dose: 1 mg Lorazepam (Ativan) 1 mg IV Q6H PRN PRN Reason: Nausea/Vomiting Magnesium Oxide (Magnesium Oxide) 400 mg PO BID [facility] Melatonin (Melatonin) 6 mg PO BEDTIME [facility] Last Admin: 01/15/18 01:56 Dose: 6 mg Morphine Sulfate (Morphine) 2 mg IVPUSH Q2H PRN PRN Reason: Pain (severe 7-10) Ondansetron HCl (Zofran) 4 mg IV Q4H PRN PRN Reason: Nausea/Vomiting Pantoprazole Sodium (Protonix Iv) 40 mg IVPUSH ACBREAKFAST [facility] Last Admin: 01/15/18 07:42 Dose: 40 mg Zolpidem Tartrate (Ambien) 5 mg PO BEDTIME [facility] Last Admin: 01/15/18 01:46 Dose: Not Given Discontinued Medications Bupivacaine HCl (Marcaine 0.5%) Confirm Administered Dose 50 ml .ROUTE .STK-MED ONE Stop: 01/15/18 10:32 Diltiazem HCl (Diltiazem) 20 mg IVPUSH ONETIME ONE Stop: 01/15/18 11:46 Gentamicin Sulfate (Gentamicin) Confirm Administered Dose 240 mg .ROUTE .STK- MED ONE Stop: 01/15/18 10:32 Hydromorphone HCl (Dilaudid) 1 mg IVPUSH ONETIME ONE Stop: 01/14/18 23:31 Last Admin: 01/14/18 23:52 Dose: 1 mg Sodium Chloride (Normal Saline) 1,000 mls @ 999 mls/hr IV ASDIRECTED [facility] Last Admin: 01/14/18 23:46 Dose: 999 mls/hr Cefazolin Sodium/Dextrose 2 gm (/ Premix) 50 mls @ 100 mls/hr IV DAILY PRN PRN Reason: Other Stop: 01/16/18 11:31 Sodium Chloride (Normal Saline) 1,000 mls @ 125 mls/hr IV ASDIRECTED [facility] Last Admin: 01/15/18 10:05 Dose: 125 mls/hr Cefazolin Sodium 2 gm/ Sodium (Chloride) 50 mls @ 100 mls/hr IV ONCALL ONE Stop: 01/15/18 11:59 Diltiazem HCl 125 mg/ Dextrose (/Water) 125 mls @ 5 mls/hr IV TITRATE [facility]; Protocol Lorazepam (Ativan) 0.5 mg IVPUSH ONETIME ONE Stop: 01/14/18 23:31 Last Admin: 01/14/18 23:52 Dose: 0.5 mg Melatonin (Melatonin) 6 mg PO BEDTIME [facility] Ondansetron HCl (Zofran) 4 mg IVPUSH ONETIME ONE Stop: 01/14/18 23:31 Last Admin: 01/14/18 23:53 Dose: 4 mg Povidone Iodine (Betadine 10% Soln) Confirm Administered Dose 1 ml .ROUTE .STK- MED ONE Stop: 01/15/18 10:32 - Exam General: Alert, Oriented, Cooperative, Mild Distress Lungs: Clear to Auscultation, Normal Respiratory Effort Cardiovascular: No Murmurs, Irregular Rhythm, Tachycardia. No: Bradycardia GI/Abdominal Exam: Soft, Non-Tender, No Organomegaly, No Distention Extremities: Other (Left lower leg is currently splinted) - Problem List Review Problem List Initiated/Reviewed/Updated: Yes - My Orders Last 24 Hours: My Active Orders 01/15/18 09:20 PT Evaluation and Treatment [CONS] Routine 01/15/18 10:56 Cardiac Monitoring [RC] .As Directed EKG 12 Lead [EK] Routine 01/15/18 10:57 EKG Documentation Completion [RC] ASDIRECTED 01/15/18 11:21 Patient Status [ADT] Routine 01/15/18 12:00 Diltiazem IR [Cardizem] 30 mg PO Q6H 01/15/18 13:41 Convert IV to Saline Lock [OM.PC] Routine 01/15/18 13:45 Magnesium Oxide 400 mg PO BID 01/15/18 Lunch Regular Diet [DIET] 01/16/18 05:00 BASIC METABOLIC PANEL,BMP [CHEM] Timed - Plan Plan:: ASSESSMENT / PLAN Left ankle fracture-surgery is on hold because of atrial fibrillation with rapid ventricular response -Plan for outpatient surgery next Friday Atrial fibrillation, chronic-complicated by rapid ventricular response -Transfer to intensive care unit for further evaluation and management -Diltiazem 30 mg by mouth every 6 hours Treated with Xarelto, placed on hold pending surgery Maintenance issues -Orders home meds: Resume usual oral medications -Nutrition: Regular diet -Duarte catheter not indicated at this time -DVT: Xarelto on hold -GI Prophalaxis; Protonix 40mg IV daily - CODE STATUS: Full Admission status: Admit to Observation -I expect this patient to stay less than 24 hours, not to exceed 96 hours for evaluation and management of this problem. Disposition: Home Primary care provider: Dr. Echeverria Hospitalist: Dr. Holden Attending: Dr. Amie Faustin, orthopedic surgeon
[2018-01-15] MEDS ORDERED: Acetaminophen 325 MG Tab PO PRN (14:04)
[2018-01-15] MEDS: oxyCODONE 5 MG Tab PO PRN ×2 (14:13→17:53)
[2018-01-15] MEDS: Magnesium Oxide 400 MG Tab PO SCH ×2 (15:00→20:58)
[2018-01-15] MEDS ORDERED: atorvaSTATin 20 MG Tab PO SCH (21:00)
[2018-01-15] MEDS ORDERED: Melatonin 3 MG Tab PO SCH (21:00)
[2018-01-15] MEDS ORDERED: Tamsulosin 0.4 MG Cap.ER PO SCH (21:00)
[2018-01-16] MEDS: oxyCODONE 5 MG Tab PO PRN ×2 (05:27→13:11)
[2018-01-16] MEDS: Diltiazem IR 30 MG Tab PO SCH (05:27)
[2018-01-16] MEDS: Magnesium Oxide 400 MG Tab PO SCH (08:28)
[2018-01-16] MEDS ORDERED: Diltiazem 120 MG Cap.CD PO SCH (09:00)
[2018-01-16] MEDS ORDERED: Enoxaparin 40 MG/0.4 ML Syringe SUBCUT SCH (09:00)
--- NOTE | 2018-01-16 09:01 | PCM.PN ---
- General Info Date of Service: 01/16/18 Subjective Update: Mr. Pineda has been stable since yesterday, heart rate is come under better control with use of oral diltiazem. He denies any symptoms of chest pain or pressure or significant shortness of breath. Continues to experience pain in his left lower leg secondary to his ankle fracture. - Review of Systems General: Denies: Fever, Weakness, Chills Pulmonary: Reports: No Symptoms Cardiovascular: Reports: No Symptoms Gastrointestinal: Reports: No Symptoms Musculoskeletal: Reports: Other (Pain left lower leg) - Patient Data Vitals - Most Recent: Last Vital Signs Temp 98.4 F 01/16/18 08:00 Pulse 92 01/16/18 08:39 Resp 16 01/16/18 08:00 BP 92/51 L 01/16/18 08:39 Pulse Ox 95 01/16/18 07:20 Weight - Most Recent: 209 lb 9.601 oz I&O - Last 24 Hours: Intake & Output 01/15/18 01/16/18 01/16/18 22:59 06:59 14:59 Intake Total 1190 300 Output Total 1525 425 Balance -335 -125 Lab Results Last 24 Hours: Laboratory Results - last 24 hr 01/15/18 01/16/18 Range/Units 11:20 05:45 Sodium 136 L (140-148) mmol/L Potassium 3.9 (3.6-5.2) mmol/L Chloride 101 (100-108) mmol/L Carbon Dioxide 27 (21-32) mmol/L Anion Gap 11.9 (5.0-14.0) mmol/L BUN 10 (7-18) mg/dL Creatinine 1.1 (0.8-1.3) mg/dL Est Cr Clr Drug Dosing 55.16 mL/min Estimated GFR (MDRD) > 60 (>60) Glucose 129 H (74-106) mg/dL Calcium 8.4 L (8.5-10.1) mg/dL Magnesium 1.8 (1.8-2.4) mg/dL Troponin I < 0.017 (0.000-0.056) ng/mL Med Orders - Current: Current Medications Acetaminophen (Tylenol) 650 mg PO Q4H PRN PRN Reason: Pain Albuterol (Proventil Neb Soln) 2.5 mg NEB Q4H PRN PRN Reason: Shortness Of Breath/wheezing Atorvastatin Calcium (Lipitor) 20 mg PO BEDTIME [facility] Last Admin: 01/15/18 20:58 Dose: 20 mg Diltiazem HCl (Cardizem Cd) 120 mg PO DAILY [facility] Last Admin: 01/16/18 08:39 Dose: 120 mg Docusate Sodium (Colace) 100 mg PO BID PRN PRN Reason: Constipation Lorazepam (Ativan) 0.5 mg IV Q4H PRN PRN Reason: Nausea/Vomiting Magnesium Oxide (Magnesium Oxide) 400 mg PO BID [facility] Last Admin: 01/16/18 08:28 Dose: 400 mg Melatonin (Melatonin) 6 mg PO BEDTIME [facility] Last Admin: 01/15/18 20:59 Dose: 6 mg Morphine Sulfate (Morphine) 2 mg IVPUSH Q2H PRN PRN Reason: Pain (severe 7-10) Last Admin: 01/15/18 21:57 Dose: 2 mg Ondansetron HCl (Zofran) 4 mg IV Q4H PRN PRN Reason: Nausea/Vomiting Oxycodone HCl (Oxycodone) 5 - 10 mg PO Q4H PRN PRN Reason: Pain Last Admin: 01/16/18 05:27 Dose: 10 mg Tamsulosin HCl (Flomax) 0.4 mg PO BEDTIME [facility] Last Admin: 01/15/18 20:58 Dose: 0.4 mg Zolpidem Tartrate (Ambien) 5 mg PO BEDTIME [facility] Last Admin: 01/15/18 20:58 Dose: 5 mg Discontinued Medications Bupivacaine HCl (Marcaine 0.5%) Confirm Administered Dose 50 ml .ROUTE .STK-MED ONE Stop: 01/15/18 10:32 Diltiazem HCl (Diltiazem) 20 mg IVPUSH ONETIME ONE Stop: 01/15/18 11:46 Last Admin: 01/15/18 18:10 Dose: Not Given Diltiazem HCl (Cardizem) 30 mg PO Q6H [facility] Last Admin: 01/16/18 05:27 Dose: 30 mg Gentamicin Sulfate (Gentamicin) Confirm Administered Dose 240 mg .ROUTE .STK- MED ONE Stop: 01/15/18 10:32 Hydromorphone HCl (Dilaudid) 1 mg IVPUSH ONETIME ONE Stop: 01/14/18 23:31 Last Admin: 01/14/18 23:52 Dose: 1 mg Hydromorphone HCl (Dilaudid) 1 mg IVPUSH Q3H PRN PRN Reason: Pain Last Admin: 01/15/18 07:35 Dose: 1 mg Sodium Chloride (Normal Saline) 1,000 mls @ 999 mls/hr IV ASDIRECTED [facility] Last Admin: 01/14/18 23:46 Dose: 999 mls/hr Cefazolin Sodium/Dextrose 2 gm (/ Premix) 50 mls @ 100 mls/hr IV DAILY PRN PRN Reason: Other Stop: 01/16/18 11:31 Sodium Chloride (Normal Saline) 1,000 mls @ 125 mls/hr IV ASDIRECTED [facility] Last Admin: 01/15/18 10:05 Dose: 125 mls/hr Cefazolin Sodium 2 gm/ Sodium (Chloride) 50 mls @ 100 mls/hr IV ONCALL ONE Stop: 01/15/18 11:59 Last Admin: 01/15/18 13:56 Dose: Not Given Diltiazem HCl 125 mg/ Dextrose (/Water) 125 mls @ 5 mls/hr IV TITRATE [facility]; Protocol Lorazepam (Ativan) 0.5 mg IVPUSH ONETIME ONE Stop: 01/14/18 23:31 Last Admin: 01/14/18 23:52 Dose: 0.5 mg Lorazepam (Ativan) 1 mg IV Q6H PRN PRN Reason: Nausea/Vomiting Melatonin (Melatonin) 6 mg PO BEDTIME [facility] Ondansetron HCl (Zofran) 4 mg IVPUSH ONETIME ONE Stop: 01/14/18 23:31 Last Admin: 01/14/18 23:53 Dose: 4 mg Pantoprazole Sodium (Protonix Iv) 40 mg IVPUSH ACBREAKFAST [facility] Last Admin: 01/15/18 07:42 Dose: 40 mg Povidone Iodine (Betadine 10% Soln) Confirm Administered Dose 1 ml .ROUTE .STK- MED ONE Stop: 01/15/18 10:32 - Exam Quality Assessment: DVT Prophylaxis. No: Supplemental Oxygen General: Alert, Oriented, Cooperative, No Acute Distress Lungs: Clear to Auscultation, Normal Respiratory Effort Cardiovascular: Regular Rate, Irregular Rhythm. No: Bradycardia, Murmurs GI/Abdominal Exam: Soft, Non-Tender, No Organomegaly, No Distention Extremities: Other (Splint in place left lower leg) - Problem List Review Problem List Initiated/Reviewed/Updated: Yes - My Orders Last 24 Hours: My Active Orders 01/15/18 09:20 PT Evaluation and Treatment [CONS] Routine 01/15/18 10:56 Cardiac Monitoring [RC] .As Directed EKG 12 Lead [EK] Routine 01/15/18 10:57 EKG Documentation Completion [RC] ASDIRECTED 01/15/18 11:21 Patient Status [ADT] Routine 01/15/18 13:41 Convert IV to Saline Lock [OM.PC] Routine 01/15/18 13:45 Magnesium Oxide 400 mg PO BID 01/15/18 13:48 oxyCODONE 5 - 10 mg PO Q4H PRN 01/15/18 13:51 LORazepam [Ativan] 0.5 mg IV Q4H PRN 01/15/18 14:04 Acetaminophen [Tylenol] 650 mg PO Q4H PRN 01/15/18 21:00 Tamsulosin [Flomax] 0.4 mg PO BEDTIME atorvaSTATin [Lipitor] 20 mg PO BEDTIME 01/15/18 Lunch Regular Diet [DIET] 01/16/18 09:00 Diltiazem [Cardizem CD] 120 mg PO DAILY Enoxaparin [Lovenox] 40 mg SUBCUT DAILY - Plan Plan:: ASSESSMENT / PLAN Left ankle fracture-surgery is on hold because of atrial fibrillation with rapid ventricular response -Plan for outpatient surgery next Friday Atrial fibrillation, chronic-rate control has improved with use of oral diltiazem -Transfer to intensive care unit for further evaluation and management -Diltiazem CD 120 mg by mouth daily Treated with Xarelto, placed on hold pending surgery Maintenance issues -Orders home meds: Resume usual oral medications -Nutrition: Regular diet -Duarte catheter not indicated at this time -DVT: Xarelto on hold -GI Prophalaxis; Protonix 40mg IV daily - CODE STATUS: Full Admission status: Admit to Observation -I expect this patient to stay less than 24 hours, not to exceed 96 hours for evaluation and management of this problem. Disposition: Home Primary care provider: Dr. Echeverria Hospitalist: Dr. Holden Attending: Dr. Amie Faustin, orthopedic surgeon
--- NOTE | 2018-01-16 11:27 | PCM.DCSUM1 ---
Discharge Summary - Hospital Course Brief History: Mr. Pineda is a 77-year-old gentleman who was admitted through the emergency department after a fall resulting in left ankle pain secondary to an underlying left fibular fracture. - Discharge Data Discharge Date: 01/16/18 Discharge Disposition: Home, Self-Care 01 Condition: Fair - Discharge Diagnosis/Problem(s) (1) Atrial fibrillation with rapid ventricular response SNOMED Code(s): 543591514560072 ICD Code: I48.91 - UNSPECIFIED ATRIAL FIBRILLATION Status: Acute Current Visit: Yes (2) Fracture of fibula SNOMED Code(s): 28746658 ICD Code: S82.409A - UNSP FRACTURE OF SHAFT OF UNSP FIBULA, INIT FOR CLOS FX Status: Acute Priority: High Current Visit: Yes - Patient Summary/Data Consults: Consultations 01/15/18 00:45 Consult to Physician [CONS] Routine Consulting Provider: Hosea Faustin Call Completed to Consulting Physician: Yes Reason for Consult: left ankle fracture; complicated Person Notified: Dr. Hosea Faustin Date Notified: 01/14/18 Time Notified: 23:30 Special Instructions: 2 gram Ancef prior to Surgery schedule surgery at noon on 01/15/18 OT Evaluation and Treatment [CONS] Routine Please Evaluate and Treat. OT Reason for Consult: Discharge Planning This query below is only for informational purposes and is not editable. 01/15/18 09:20 PT Evaluation and Treatment [CONS] Routine Please Evaluate and Treat. PT Reason for Consult: Ambulation Pending Discharge: Yes Discharge Disposition: Home Special Instructions: assess for home equipment needs for ambulation This query below is only for informational purposes and is not editable. Admission Diagnosis/Problem: Ankle fracture 01/16/18 09:12 Consult to Physical Therapy [PT Evaluation and Treatment] [CONS] Routine Please Evaluate and Treat. PT Reason for Consult: to prepare pt and assesss ability to d/c from hospital This query below is only for informational purposes and is not editable. Admission Diagnosis/Problem: Ankle fracture Hospital Course: This is a 77 year old male who presented to ER for left ankle pain. Reports at 7pm this evening was out on his deck, sitting in a chair went to get up, the deck was wet and he slipped and twisted the ankle. He had immediate pain and swelling. Unable to put any wt on the foot. denies any other injury, did not have any LOC. He called his neighbor to bring him to the hospital. X-rays of left ankle show a spiral oblique fracture of the distal fibula was abnormal mortise of ankle. Consult to Dr. Peter Faustin who advised admission for surgery , also advised reduction of the ankle. This was done by ER provider without complication. Placed in the steel and foam splint. While in emergency room given IV fluids, Dilaudid, Ativan, and Zofran. Surgery was planned for the morning after admission, he does have a known history of chronic atrial fibrillation. Most recent echocardiogram showed mildly decreased left jugular function with estimated ejection fraction of 45-50 %. Prior to surgery he got up and was using the walker to ambulate without weightbearing. His heart rate increased significantly to the 170-190 range. During this period of time he became weak and diaphoretic with some lightheadedness, but denied any symptoms of chest pain or pressure or shortness of breath. Heart rate remained elevated in the 130 to 140 range so his surgery was canceled. He was transferred to the intensive care unit with the intention that we would start him on IV diltiazem for rate control. Heart rate did improve somewhat prior to that so he was started on oral diltiazem 30 mg every 6 hours. This did result in good rate control at rest with heart rates in the 60 -80 range. Prior to discharge she was able to ambulate short distances with use of walker and no weightbearing on the left leg. He will be discharged home on oral diltiazem as well as pain medication with oxycodone and senna S as needed for constipation. He will return on January 20 for outpatient surgery with Dr. Peter Faustin. He is instructed to remain with no weightbearing on the left leg and to be nothing by mouth after midnight on January 19. Activity will remain no weightbearing left leg, regular diet until midnight on January 19. He will return to the emergency department if he notes increased pain redness or swelling. - Patient Instructions Diet: Usual Diet as Tolerated Activity: Non Weight Bearing (Left leg) Notify Provider of: Increased Pain, Swelling and Redness Other/Special Instructions: Plan for outpatient surgery with Dr. Paulie Faustin on January 20. Nothing by mouth after midnight January 19. - Discharge Plan *PRESCRIPTION DRUG MONITORING PROGRAM REVIEWED*: Not Applicable *COPY OF PRESCRIPTION DRUG MONITORING REPORT IN PATIENT JESU: Not Applicable Prescriptions/Med Rec: Diltiazem [Cardizem CD] 120 mg PO DAILY #30 cap.cd oxyCODONE HCl/Acetaminophen [Oxycodone-Acetaminophen 5-325] 1 - 2 each PO Q4H PRN #40 tablet PRN Reason: Pain Sennosides/Docusate Sodium [Senna-S] 1 each PO BID PRN #30 tablet PRN Reason: Constipation Home Medications: Home Meds Lutein Extract/Zeaxanthin Ext [Lutein 15 MG Softgel] 1 each PO DAILY 05/31/13 [ History] Multivitamin [Multi-Vitamin Daily] 1 each PO DAILY 05/31/13 [History] atorvaSTATin [Lipitor] 20 mg PO BEDTIME 01/14/18 [History] Diltiazem [Cardizem CD] 120 mg PO DAILY #30 cap.cd 01/16/18 [Rx] Sennosides/Docusate Sodium [Senna-S] 1 each PO BID PRN #30 tablet 01/16/18 [Rx] oxyCODONE HCl/Acetaminophen [Oxycodone-Acetaminophen 5-325] 1 - 2 each PO Q4H PRN #40 tablet 01/16/18 [Rx] Referrals: Hosea Faustin DO [Physician] - 01/29/18 11:00 am - Discharge Summary/Plan Comment DC Time >30 min.: No - Patient Data Vitals - Most Recent: Last Vital Signs Temp 98.4 F 01/16/18 08:00 Pulse 92 01/16/18 08:39 Resp 16 01/16/18 08:00 BP 92/51 L 01/16/18 08:39 Pulse Ox 95 01/16/18 07:20 Weight - Most Recent: 209 lb 9.601 oz I&O - Last 24 hours: Intake & Output 01/15/18 01/16/18 01/16/18 22:59 06:59 14:59 Intake Total 1190 300 Output Total 1525 425 Balance -335 -125 Lab Results - Last 24 hrs: Laboratory Results - last 24 hr 01/15/18 01/16/18 Range/Units 11:20 05:45 Sodium 136 L (140-148) mmol/L Potassium 3.9 (3.6-5.2) mmol/L Chloride 101 (100-108) mmol/L Carbon Dioxide 27 (21-32) mmol/L Anion Gap 11.9 (5.0-14.0) mmol/L BUN 10 (7-18) mg/dL Creatinine 1.1 (0.8-1.3) mg/dL Est Cr Clr Drug Dosing 55.16 mL/min Estimated GFR (MDRD) > 60 (>60) Glucose 129 H (74-106) mg/dL Calcium 8.4 L (8.5-10.1) mg/dL Magnesium 1.8 (1.8-2.4) mg/dL Troponin I < 0.017 (0.000-0.056) ng/mL Med Orders - Current: Current Medications Acetaminophen (Tylenol) 650 mg PO Q4H PRN PRN Reason: Pain Albuterol (Proventil Neb Soln) 2.5 mg NEB Q4H PRN PRN Reason: Shortness Of Breath/wheezing Atorvastatin Calcium (Lipitor) 20 mg PO BEDTIME [facility] Last Admin: 01/15/18 20:58 Dose: 20 mg Diltiazem HCl (Cardizem Cd) 120 mg PO DAILY [facility] Last Admin: 01/16/18 08:39 Dose: 120 mg Docusate Sodium (Colace) 100 mg PO BID PRN PRN Reason: Constipation Enoxaparin Sodium (Lovenox) 40 mg SUBCUT DAILY [facility] Last Admin: 01/16/18 09:29 Dose: 40 mg Lorazepam (Ativan) 0.5 mg IV Q4H PRN PRN Reason: Nausea/Vomiting Magnesium Oxide (Magnesium Oxide) 400 mg PO BID [facility] Last Admin: 01/16/18 08:28 Dose: 400 mg Melatonin (Melatonin) 6 mg PO BEDTIME [facility] Last Admin: 01/15/18 20:59 Dose: 6 mg Morphine Sulfate (Morphine) 2 mg IVPUSH Q2H PRN PRN Reason: Pain (severe 7-10) Last Admin: 01/15/18 21:57 Dose: 2 mg Ondansetron HCl (Zofran) 4 mg IV Q4H PRN PRN Reason: Nausea/Vomiting Oxycodone HCl (Oxycodone) 5 - 10 mg PO Q4H PRN PRN Reason: Pain Last Admin: 01/16/18 05:27 Dose: 10 mg Tamsulosin HCl (Flomax) 0.4 mg PO BEDTIME [facility] Last Admin: 01/15/18 20:58 Dose: 0.4 mg Zolpidem Tartrate (Ambien) 5 mg PO BEDTIME [facility] Last Admin: 01/15/18 20:58 Dose: 5 mg Discontinued Medications Bupivacaine HCl (Marcaine 0.5%) Confirm Administered Dose 50 ml .ROUTE .STK-MED ONE Stop: 01/15/18 10:32 Diltiazem HCl (Diltiazem) 20 mg IVPUSH ONETIME ONE Stop: 01/15/18 11:46 Last Admin: 01/15/18 18:10 Dose: Not Given Diltiazem HCl (Cardizem) 30 mg PO Q6H [facility] Last Admin: 01/16/18 05:27 Dose: 30 mg Gentamicin Sulfate (Gentamicin) Confirm Administered Dose 240 mg .ROUTE .STK- MED ONE Stop: 01/15/18 10:32 Hydromorphone HCl (Dilaudid) 1 mg IVPUSH ONETIME ONE Stop: 01/14/18 23:31 Last Admin: 01/14/18 23:52 Dose: 1 mg Hydromorphone HCl (Dilaudid) 1 mg IVPUSH Q3H PRN PRN Reason: Pain Last Admin: 01/15/18 07:35 Dose: 1 mg Sodium Chloride (Normal Saline) 1,000 mls @ 999 mls/hr IV ASDIRECTED [facility] Last Admin: 01/14/18 23:46 Dose: 999 mls/hr Cefazolin Sodium/Dextrose 2 gm (/ Premix) 50 mls @ 100 mls/hr IV DAILY PRN PRN Reason: Other Stop: 01/16/18 11:31 Sodium Chloride (Normal Saline) 1,000 mls @ 125 mls/hr IV ASDIRECTED [facility] Last Admin: 01/15/18 10:05 Dose: 125 mls/hr Cefazolin Sodium 2 gm/ Sodium (Chloride) 50 mls @ 100 mls/hr IV ONCALL ONE Stop: 01/15/18 11:59 Last Admin: 01/15/18 13:56 Dose: Not Given Diltiazem HCl 125 mg/ Dextrose (/Water) 125 mls @ 5 mls/hr IV TITRATE [facility]; Protocol Lorazepam (Ativan) 0.5 mg IVPUSH ONETIME ONE Stop: 01/14/18 23:31 Last Admin: 01/14/18 23:52 Dose: 0.5 mg Lorazepam (Ativan) 1 mg IV Q6H PRN PRN Reason: Nausea/Vomiting Melatonin (Melatonin) 6 mg PO BEDTIME [facility] Ondansetron HCl (Zofran) 4 mg IVPUSH ONETIME ONE Stop: 01/14/18 23:31 Last Admin: 01/14/18 23:53 Dose: 4 mg Pantoprazole Sodium (Protonix Iv) 40 mg IVPUSH ACBREAKFAST [facility] Last Admin: 01/15/18 07:42 Dose: 40 mg Povidone Iodine (Betadine 10% Soln) Confirm Administered Dose 1 ml .ROUTE .[facility] ONE Stop: 01/15/18 10:32 - Exam General: Reports: Alert, Oriented, Cooperative, Mild Distress Lungs: Reports: Clear to Auscultation, Normal Respiratory Effort Cardiovascular: Reports: Regular Rate, No Murmurs, Irregular Rhythm GI/Abdominal Exam: Soft, Non-Tender, No Organomegaly, No Distention Extremities: Other
[2018-01-16 14:36] VITALS: BP 106/52
== END 2018-01-16 13:25 | disposition home or self-care (01) | DRG 563 ==
LOC: JP.ED 21:02 → JP.MS 23:48 → OBSVTOIN 01-15 11:21 → JP.ICU 01-15 12:00
PROVIDERS: ADMIT Hospitalist; ATTEND Hospitalist
PROC: 0QSKXZZ Reposition Left Fibula, External Approach (ICD-10-PCS; 2018-01-14)
PROC: 2W3RX1Z Immobilization of Left Lower Leg using Splint (ICD-10-PCS; principal; 2018-01-15)
DX: S82.445A Nondisplaced spiral fracture of shaft of left fibula, initial encounter for closed fracture (principal); S82.435A Nondisplaced oblique fracture of shaft of left fibula, initial encounter for closed fracture; I48.2 Chronic atrial fibrillation; Z79.01 Long term (current) use of anticoagulants; W01.0XXA Fall on same level from slipping, tripping and stumbling without subsequent striking against object, initial encounter; Y92.008 Other place in unspecified non-institutional (private) residence as the place of occurrence of the external cause; M25.572 Pain in left ankle and joints of left foot; R00.2 Palpitations; R42 Dizziness and giddiness; E78.00 Pure hypercholesterolemia, unspecified; H54.7 Unspecified visual loss; Z88.2 Allergy status to sulfonamides
CPT/HCPCS: 27788; 36415; 73610 ×2; 80048; 81001; 83735; 84484; 85025; 93005; 96374; 99285; A9270; C9113; J1170 ×3; J2060; J2405; J7030 ×3; 27840; 97163-GP; 97530-GP; 99284-25; J1580; J1650; J2270; J3490

== ENCOUNTER 2018-01-20 09:12 | Day surgery (SDC) | payer MEDICARE, BC ==
[2018-01-20] MEDS ORDERED: Bupivacaine 0.5% 50 ML MDV ONE (09:56)
[2018-01-20] MEDS ORDERED: Gentamicin 40 MG/ML 2 ML Vial ONE (09:56)
[2018-01-20] MEDS ORDERED: Povidone-Iodine 10% Soln 118.25 ML Bottle ONE (09:56)
[2018-01-20] MEDS ORDERED: Sodium Chloride 0.9% 1,000 ML IV SCH (10:00)
[2018-01-20] MEDS ORDERED: ceFAZolin 2 GM in Sodium Chloride 0.9% 50 ML IV ONE (10:30)
[2018-01-20] MEDS ORDERED: Propofol 200 MG/20 ML SDV ONE (10:48)
[2018-01-20] MEDS ORDERED: Ondansetron 4 MG/2 ML SDV ONE (10:48)
[2018-01-20] MEDS ORDERED: fentaNYL 250 MCG/5 ML SDV ONE (10:48)
[2018-01-20] MEDS ORDERED: Succinylcholine 200 MG/10 ML MDV ONE (10:48)
[2018-01-20] MEDS ORDERED: Dexamethasone 4 MG/ML SDV ONE (10:48)
[2018-01-20] MEDS ORDERED: Rocuronium 50 MG/5 ML Vial ONE (10:48)
[2018-01-20] MEDS ORDERED: Neostigmine Methylsulfate 1 MG/ML 5 ML Syringe ONE (10:53)
[2018-01-20] MEDS ORDERED: Glycopyrrolate 0.2 MG/ML 5 ML MDV ONE (10:53)
[2018-01-20] MEDS ORDERED: Vancomycin 1 GM SDV ONE (12:02)
[2018-01-20] MEDS ORDERED: traMADol 50 MG Tab PO PRN (12:24)
[2018-01-20] MEDS ORDERED: Morphine 2 MG/ML Syringe IVPUSH PRN (12:24)
[2018-01-20] MEDS ORDERED: Naloxone 0.4 MG/ML SDV IVPUSH PRN (12:24)
[2018-01-20] MEDS ORDERED: Zolpidem 5 MG Tab PO PRN (12:24)
--- NOTE | 2018-01-20 16:32 | OR ---
DATE OF PROCEDURE: 01/20/2018 PREOPERATIVE DIAGNOSIS: Left distal fibula fracture, closed. POSTOPERATIVE DIAGNOSIS: Left distal fibula fracture, closed. PROCEDURE: Open reduction and internal fixation of left distal fibula. ANESTHESIA: Laryngeal mask airway. FLUIDS: Lactated Ringer solution. ESTIMATED BLOOD LOSS: 25 mL. COMPLICATION: None. SPECIMEN: None. DISCHARGE DISPOSITION: Stable to PACU. INDICATION FOR PROCEDURE: The patient was seen preoperatively in the hospital. He was admitted for distal fibular fracture. He was out on his deck with a girlfriend and tripped. We were planning on doing surgery last week; however, he went into atrial fibrillation on the floor. He was treated for atrial fibrillation. He was still in atrial fibrillation, but stable with a controlled heart rate. He went home over the weekend. He came back in this morning. Preoperative imaging confirmed the above-mentioned diagnosis. He was nonweightbearing after being placed into a splint by the emergency department physician. DETAILS OF PROCEDURE: The patient was seen preoperatively by myself and the Anesthesia staff in the preoperative holding area, where the operative site was marked. He was brought to the operative suite by Anesthesia staff, where general anesthesia was administered. A well-padded tourniquet was placed on the left thigh. The left lower extremity was then prepped and draped in a sterile manner. Time-out was called identifying the correct patient, the correct procedure, the correct site, and that antibiotics had been begun within the appropriate of time. The left lower extremity was then exsanguinated and tourniquet was raised to 300 mmHg. We then made an incision over the distal fibula after confirming fracture site location on fluoroscopy. I then encountered a hematoma immediately with increased swelling. I used Metzenbaums to go down to the fracture site and then carefully elevate the soft tissue off the distal fibula. The superficial peroneal nerve was not encountered. This was a highly-comminuted fracture. I spent a few minutes cleaning off the edges, irrigating and then putting the pieces back in where they should be. I used bone tenaculums to get the distal fragment out to length, which helped the reduction. While not perfect, this did restore the distal fibular length adequately, and the mortise appeared to be normal on AP fluoroscopy. At that point in time, we used a short distal fibular plate, which was anatomic. I used a K-wire to put it in position and then while holding it out to length, I drilled 3.5 cortical screw and placed it in the middle cortical holes on the shaft. This held it out to length. I then placed all of my distal fibular locking screws and then the remainder of my two 3.5 cortical screws. I stressed the ankle to make sure that the syndesmosis was intact, which it was. We then took AP and lateral final films, copiously irrigated with saline, which was Betadine infused. Then, I did place a small amount of vancomycin. I then closed with #1 STRATAFIX, gonzález, and a sterile dressing followed by Sonu wrap and then placed him into a Cam Walker boot, in which he is supposed to be nonweightbearing. Please note that, prior to prepping, he did have significant odor to his foot, so I personally used chlorhexidine scrub with a brush and scrubbed this twice, that is also why I applied the vancomycin subcutaneously. He also had a blister posteriorly, which we did place an op-site over. Hosea Faustin DO /[id number]
[2018-01-20] MEDS: ceFAZolin 2 GM in Sodium Chloride 0.9% 50 ML IV SCH (17:24)
[2018-01-20] MEDS: Acetaminophen/HYDROcodone 325-5 MG Tab PO PRN ×2 (19:32→23:38)
[2018-01-20] MEDS ORDERED: atorvaSTATin 20 MG Tab PO SCH (21:00)
[2018-01-21] MEDS: ceFAZolin 2 GM in Sodium Chloride 0.9% 50 ML IV SCH ×2 (02:21→09:02)
[2018-01-21] MEDS: Acetaminophen/HYDROcodone 325-5 MG Tab PO PRN ×2 (03:53→07:44)
[2018-01-21 07:26] VITALS: BP 137/83
[2018-01-21] MEDS ORDERED: Diltiazem 120 MG Cap.CD PO SCH (09:00)
[2018-01-21] MEDS ORDERED: Rivaroxaban 10 MG Tab PO SCH (09:00)
--- NOTE | 2018-01-21 10:08 | PCM.DCSUM1 ---
Discharge Summary - Hospital Course Brief History: 77 yo male left distal fibula fracture last week went into afib just prior to scheduled surgery. Afib controlled by Dr. Maria for surgery . Diagnosis: Stroke: No - Discharge Data Discharge Date: 01/21/18 Discharge Disposition: Home, Self-Care 01 Condition: Good - Discharge Diagnosis/Problem(s) (1) Status post ORIF of fracture of ankle SNOMED Code(s): 421048136 ICD Code: Z96.7 - PRESENCE OF OTHER BONE AND TENDON IMPLANTS; Z87.81 - PERSONAL HISTORY OF (HEALED) TRAUMATIC FRACTURE Status: Acute Current Visit : Yes Problem Details: Left (2) Fracture of fibula SNOMED Code(s): 07637049 ICD Code: S82.409A - UNSP FRACTURE OF SHAFT OF UNSP FIBULA, INIT FOR CLOS FX Status: Acute Priority: High Current Visit: No - Patient Summary/Data Operative Procedure(s) Performed: l ankle orif Complications: none Consults: Consultations 01/20/18 12:24 OT Evaluation and Treatment [CONS] Routine Please Evaluate and Treat. OT Reason for Consult: Strengthening This query below is only for informational purposes and is not editable. PT Evaluation and Treatment [CONS] Routine Please Evaluate and Treat. PT Reason for Consult: Strengthening This query below is only for informational purposes and is not editable. Respiratory Care Assess and Treatment [CONS] Routine Comment: Physician Instructions: Post-Op Pneumonia Prevention - Patient Instructions Diet: Usual Diet as Tolerated Activity: Apply Ice, Cough & Deep Breathe, Non Weight Bearing, No Strenuous Activities Driving: Do Not Drive Showering/Bathing: May Shower Showering/Bathing, Other: keep dressing clean and dry if showering Wound/Incision Care: Keep Operative Site/Wound Site Clean and Dry Notify Provider of: Fever, Increased Pain, Swelling and Redness, Drainage, Nausea and/or Vomiting - Discharge Plan Home Medications: Home Meds Lutein Extract/Zeaxanthin Ext [Lutein 15 MG Softgel] 1 each PO DAILY 05/31/13 [ History] Multivitamin [Multi-Vitamin Daily] 1 each PO DAILY 05/31/13 [History] atorvaSTATin [Lipitor] 20 mg PO BEDTIME 01/14/18 [History] Diltiazem [Cardizem CD] 120 mg PO DAILY #30 cap.cd 01/16/18 [Rx] Sennosides/Docusate Sodium [Senna-S] 1 each PO BID PRN #30 tablet 01/16/18 [Rx] oxyCODONE HCl/Acetaminophen [Oxycodone-Acetaminophen 5-325] 1 - 2 each PO Q4H PRN #40 tablet 01/16/18 [Rx] Rivaroxaban [Xarelto] 20 mg PO DAILY 01/19/18 [History] Referrals: Hosea Faustin DO [Physician] - - General Info Date of Service: 01/21/18 Functional Status: Reports: Pain Controlled, Tolerating Diet, Urinating - Review of Systems General: Reports: No Symptoms HEENT: Reports: No Symptoms Pulmonary: Reports: No Symptoms Cardiovascular: Reports: No Symptoms Gastrointestinal: Reports: No Symptoms Genitourinary: Reports: No Symptoms Musculoskeletal: Reports: Leg Pain, Joint Pain Skin: Reports: No Symptoms Neurological: Reports: No Symptoms Psychiatric: Reports: No Symptoms - Patient Data Vitals - Most Recent: Last Vital Signs Temp 97.5 F 01/21/18 07:22 Pulse 74 01/21/18 09:03 Resp 18 01/21/18 07:22 BP 137/83 01/21/18 09:03 Pulse Ox 98 01/21/18 07:22 Weight - Most Recent: 200 lb I&O - Last 24 hours: Intake & Output 01/20/18 01/21/18 01/21/18 22:59 06:59 14:59 Intake Total 600 650 300 Output Total 225 450 Balance 375 650 -150 Med Orders - Current: Current Medications Hydrocodone Bitart/Acetaminophen (Hughes 325-5 Mg) 1 tab PO Q4H PRN PRN Reason: Pain Last Admin: 01/21/18 07:44 Dose: 1 tab Atorvastatin Calcium (Lipitor) 20 mg PO BEDTIME [facility] Last Admin: 01/20/18 20:59 Dose: 20 mg Diltiazem HCl (Cardizem Cd) 120 mg PO DAILY [facility] Last Admin: 01/21/18 09:03 Dose: 120 mg Sodium Chloride (Normal Saline) 1,000 mls @ 0 mls/hr IV ASDIRECTED [facility] Last Admin: 01/20/18 10:19 Dose: 100 mls/hr Cefazolin Sodium 2 gm/ Sodium (Chloride) 50 mls @ 100 mls/hr IV Q8H [facility] Stop: 01/21/18 10:29 Last Admin: 01/21/18 09:02 Dose: 100 mls/hr Morphine Sulfate (Morphine) 2 mg IVPUSH Q2H PRN PRN Reason: Pain Naloxone HCl (Narcan) 0.1 mg IVPUSH ONETIME PRN PRN Reason: in Rivaroxaban (Xarelto) 20 mg PO DAILY [facility] Last Admin: 01/21/18 09:04 Dose: 20 mg Senna/Docusate Sodium (Senna Plus) 1 tab PO BID PRN PRN Reason: Constipation Tramadol HCl (Ultram) 50 mg PO Q4H PRN PRN Reason: Pain Zolpidem Tartrate (Ambien) 5 mg PO BEDTIME PRN PRN Reason: Insomnia Discontinued Medications Bupivacaine HCl (Marcaine 0.5%) Confirm Administered Dose 50 ml .ROUTE .STK-MED ONE Stop: 01/20/18 09:57 Last Admin: 01/20/18 12:09 Dose: 38 ml Dexamethasone (Dexamethasone) Confirm Administered Dose 4 mg .ROUTE .STK-MED ONE Stop: 01/20/18 10:49 Fentanyl (Sublimaze) Confirm Administered Dose 250 mcg .ROUTE .STK-MED ONE Stop: 01/20/18 10:49 Gentamicin Sulfate (Gentamicin) Confirm Administered Dose 80 mg .ROUTE .STK-MED ONE Stop: 01/20/18 09:57 Glycopyrrolate (Robinul) Confirm Administered Dose 1 mg .ROUTE .STK-MED ONE Stop: 01/20/18 10:54 Cefazolin Sodium 2 gm/ Sodium (Chloride) 50 mls @ 100 mls/hr IV ONETIME ONE Stop: 01/20/18 10:59 Last Admin: 01/20/18 11:06 Dose: 100 mls/hr Neostigmine Methylsulfate (Neostigmine) Confirm Administered Dose 5 mg .ROUTE .STK-MED ONE Stop: 01/20/18 10:54 Ondansetron HCl (Zofran) Confirm Administered Dose 4 mg .ROUTE .STK-MED ONE Stop: 01/20/18 10:49 Povidone Iodine (Betadine 10% Soln) Confirm Administered Dose 1 ml .ROUTE .STK- MED ONE Stop: 01/20/18 09:57 Last Admin: 01/20/18 11:35 Dose: 30 ml Propofol (Diprivan 20 Ml) Confirm Administered Dose 200 mg .ROUTE .STK-MED ONE Stop: 01/20/18 10:49 Rocuronium [place] (Zemuron) Confirm Administered Dose 50 mg .ROUTE .STK-MED ONE Stop: 01/20/18 10:49 Succinylcholine Chloride (Quelicin) Confirm Administered Dose 200 mg .ROUTE .STK -MED ONE Stop: 01/20/18 10:49 Vancomycin HCl (Vancomycin) Confirm Administered Dose 1 gm .ROUTE .STK-MED ONE Stop: 01/20/18 12:03 Last Admin: 01/20/18 12:06 Dose: 1 gm - Exam General: Reports: Alert, Oriented HEENT: Reports: Pupils Equal, Pupils Reactive, Mucous Membr. Moist/[address] Neck: Reports: Supple Lungs: Reports: Clear to Auscultation GI/Abdominal Exam: No Distention Extremities: Leg Pain, Limited Range of Motion Skin: Reports: Warm, Dry, Intact Wound/Incisions: Reports: Healing Well Neurological: Reports: No New Focal Deficit Psy/Mental Status: Reports: Alert, Normal Affect, Normal Mood Discharge Operative/Procedures - Procedures Performed Operations: orif l distal fibula
--- NOTE | 2018-01-21 12:11 | CR ---
Fluoro Up To 1Hr CLINICAL HISTORY: Open reduction ankle fracture FINDINGS: Intraoperative fluoroscopy was used during surgical fixation of the distal fibula. Fluorosc opy time was 40.3 seconds
== END 2018-01-21 11:00 | disposition home or self-care (01) ==
LOC: JP.SDS 09:12 → JP.MS 12:24 → JP.SDS 01-21 11:00
PROVIDERS: ATTEND Orthopaedic Surgery
DX: S82.832A Other fracture of upper and lower end of left fibula, initial encounter for closed fracture (principal); I48.91 Unspecified atrial fibrillation; Z88.2 Allergy status to sulfonamides; W01.0XXA Fall on same level from slipping, tripping and stumbling without subsequent striking against object, initial encounter
CPT/HCPCS: 27792; 76000; 97161; A9270; C1713; J0330; J0690; J1100; J2405; J2704; J2710; J3010; J3370; J3490; J7030; J7050; J1580